=== PATIENT | male | born 1955 | race Asian ===

== ENCOUNTER 2018-06-03 08:04 | Day surgery (SDC) | payer OTHER ==
[2018-06-03] MEDS ORDERED: HEPARIN 1000 UNITS/ML 10 ML INJ (09:38)
[2018-06-03] MEDS ORDERED: FENTAnyl 50 MCG/ML VIAL (09:38)
[2018-06-03] MEDS ORDERED: SOD CHLORIDE 0.9% 500 ML (09:38)
[2018-06-03] MEDS ORDERED: MIDAZOLAM 1 MG/ML 2 ML INJ (09:38)
[2018-06-03] MEDS ORDERED: HEPARIN 1000 UNITS/NS (A-LINE) 1,000 ML (09:38)
[2018-06-03] MEDS ORDERED: IODIXANOL LOCM 100 ML BTL (09:38)
[2018-06-03] MEDS ORDERED: LIDOCAINE 1% (MDV) 10 ML INJ (09:38)
[2018-06-03] MEDS ORDERED: CEFAZOLIN 2 GM/50 ML (PMX) 50 ML IVPB (11:04)
== END 2018-06-03 20:39 | disposition home or self-care (01) ==
LOC: SDS 08:04
DX: I73.9 Peripheral vascular disease, unspecified (principal); E11.51 Type 2 diabetes mellitus with diabetic peripheral angiopathy without gangrene; I10 Essential (primary) hypertension; E78.5 Hyperlipidemia, unspecified
CPT/HCPCS: 37225; 76937; 82962

== ENCOUNTER 2018-09-06 07:28 | Day surgery (SDC) | payer OTHER ==
[~2018-09-06 07:28] MED LIST: CEFAZOLIN 2 GM/50 ML (PMX) 50 ML IVPB; LIDOCAINE 2% (SDV) 5 ML INJ; SOD CHLORIDE 0.9% 1,000 ML IV
[2018-09-06] MEDS ORDERED: BUPIVACAINE 0.25% (MPF) 30 ML INJ (09:06)
[2018-09-06] MEDS ORDERED: MIDAZOLAM 1 MG/ML 2 ML INJ (09:30)
[2018-09-06] MEDS ORDERED: CEFAZOLIN 1 GM INJ (09:37)
[2018-09-06] MEDS ORDERED: PROPOFOL 20 ML (10:00)
[2018-09-06] MEDS: BUPIVACAINE 0.5% (SDV) 30 ML INJ (10:01)
[2018-09-06] MEDS: LIDOCAINE 2% (MDV) 20 ML INJ (10:02)
[2018-09-06] MEDS ORDERED: ALBUTEROL 0.083% (NEB) 2.5 MG/3 ML AMP HHN (10:30)
[2018-09-06] MEDS ORDERED: hydrALAzine 20 MG INJ IV (10:30)
[2018-09-06] MEDS ORDERED: OXYCODONE/ACETAMINOPHEN (5/325) TAB PO ×2 (10:30)
[2018-09-06] MEDS ORDERED: LABETALOL HCL 20MG INJ IV (10:30)
[2018-09-06] MEDS ORDERED: KETOROLAC 30 MG INJ IV (10:30)
[2018-09-06] MEDS ORDERED: HYDROCODONE/APAP (5/325) TAB PO (10:30)
[2018-09-06] MEDS ORDERED: HYDROmorphONE 1 MG/5 ML IV SYRINGE IV ×2 (10:30)
[2018-09-06] MEDS ORDERED: FENTAnyl 50 MCG/ML VIAL IV ×3 (10:30)
[2018-09-06] MEDS ORDERED: EPHEDrine SULFATE 50 MG/5 ML SYG IV (10:30)
[2018-09-06] MEDS ORDERED: MEPERIDINE 25 MG INJ IV (10:30)
[2018-09-06] MEDS ORDERED: ONDANSETRON 4 MG INJ IV (10:30)
== END 2018-09-06 11:40 | disposition home or self-care (01) ==
LOC: SDS 07:28
DX: D17.0 Benign lipomatous neoplasm of skin and subcutaneous tissue of head, face and neck (principal); E78.5 Hyperlipidemia, unspecified; I10 Essential (primary) hypertension; E11.51 Type 2 diabetes mellitus with diabetic peripheral angiopathy without gangrene; Z79.84 Long term (current) use of oral hypoglycemic drugs; I25.10 Atherosclerotic heart disease of native coronary artery without angina pectoris
CPT/HCPCS: 14021; 71045; 88307

== ENCOUNTER 2019-04-21 14:50 | Day surgery (SDC) | payer OTHER ==
[2019-04-21 16:10] LABS: ADD MAN DIFF? NO
[2019-04-21 16:13] LABS: WHITE BLOOD COUNT 5.9 10^3/ul (4.8-10.8)
[2019-04-21 16:13] LABS: BASOPHIL # 0.1 10^3/ul (0.0-0.1); EOSINOPHILS # 0.2 10^3/ul (0.0-0.5); EOSINOPHILS % 3.7 % (0.0-7.0); HEMATOCRIT 42.3 % (42.0-52.0); HEMOGLOBIN 14.3 g/dl (14.0-18.0); LYMPHOCYTES # 1.8 10^3/ul (0.8-2.9); LYMPHOCYTES % 29.7 % (15.0-51.0); MEAN CORPUSCULAR HEMOGLOBIN 30.8 pg (29.0-33.0); MEAN CORPUSCULAR HGB CONC 33.8 g/dl (32.0-37.0); MEAN PLATELET VOLUME 10.6 fl (7.4-10.4); MONOCYTE # 0.4 10^3/ul (0.3-0.9); MONOCYTES % 6.6 % (0.0-11.0); NEUTROPHIL # 3.5 10^3/ul (1.6-7.5); NEUTROPHILS % 58.8 % (39.0-77.0); PLATELET COUNT 238 10^3/UL (140-415); RED BLOOD COUNT 4.65 10^6/ul (4.70-6.10); RED CELL DISTRIBUTION WIDTH 11.9 % (11.5-14.5)
[2019-04-21] MEDS ORDERED: SOD CHLORIDE 0.9% 1,000 ML IV (16:30)
[2019-04-21 16:32] LABS: INR 0.85; PROTIME 11.7 Sec (11.9-14.9); PT RATIO 0.9
[2019-04-21 16:33] LABS: PARTIAL THROMBOPLASTIN TIME 30.9 Sec (23.0-35.0)
[2019-04-21] MEDS ORDERED: MIDAZOLAM 1 MG/ML 2 ML INJ (16:39)
[2019-04-21] MEDS ORDERED: HEPARIN 1000 UNITS/ML 10 ML INJ (16:39)
[2019-04-21] MEDS ORDERED: IODIXANOL LOCM 100 ML BTL (16:39)
[2019-04-21] MEDS ORDERED: LIDOCAINE 1% (MDV) 20 ML INJ (16:39)
[2019-04-21] MEDS ORDERED: FENTAnyl 50 MCG/ML VIAL (16:40)
[2019-04-21 16:59] LABS: ALANINE AMINOTRANSFERASE 45 IU/L (13-69); ALBUMIN 4.6 g/dl (3.3-4.9); ALBUMIN/GLOBULIN RATIO 1.43; ALKALINE PHOSPHATASE 42 IU/L (42-121); ANION GAP 10 (5-13); ASPARTATE AMINO TRANSFERASE 40 IU/L (15-46); BILIRUBIN,INDIRECT 0.6 mg/dl (0-1.1); BILIRUBIN,TOTAL 0.6 mg/dl (0.2-1.3); BLOOD UREA NITROGEN 17 mg/dl (7-20); CALCIUM 9.2 mg/dl (8.4-10.2); CARBON DIOXIDE 23 mmol/L (21-31); CHLORIDE 107 mmol/L (97-110); CREATININE 0.63 mg/dl (0.61-1.24); Estimated GFR > 60 mL/min (>60); GLUCOSE 111 mg/dl (70-220); POTASSIUM 4.4 mmol/L (3.5-5.1); SODIUM 140 mmol/L (135-144); TOTAL PROTEIN 7.8 g/dl (6.1-8.1)
== END 2019-04-21 21:35 | disposition home or self-care (01) ==
LOC: SDS 14:50
DX: I73.9 Peripheral vascular disease, unspecified (principal); I10 Essential (primary) hypertension; E11.9 Type 2 diabetes mellitus without complications
CPT/HCPCS: 36200; 71045; 75630; 80053; 82962; 85025; 85610; 85730; 93005